=== PATIENT | female | born 1960 | race Caucasian/White ===

== ENCOUNTER 2017-12-07 10:25 | Day surgery (SDC) | payer MEDICARE, BC ==
[~2017-12-07] VITALS: Ht 172.7 cm; Wt 91.6 kg
[2017-12-07] VITALS (14 sets, daily range): BP systolic 97–130; BP diastolic 60–75
[2017-12-07] MEDS ORDERED: dextrose ORAL solution 15 GM/59 ML bottle PO PRN ×2 (10:45)
[2017-12-07] MEDS ORDERED: LORazepam 0.5 MG tablet PO PRN (10:45)
[2017-12-07] MEDS ORDERED: diphenhydrAMINE 25mg capsule PO PRN (10:45)
[2017-12-07] MEDS ORDERED: glucagon, human recombinant 1mg kit SUBCUT PRN (10:45)
[2017-12-07] MEDS ORDERED: insulin Lispro (HumaLOG) vial - multi-dose SQ SCH (10:45)
[2017-12-07] MEDS ORDERED: MESSAGE TO PHARMACY PO ONE (10:45)
[2017-12-07] MEDS ORDERED: normal saline 1000ml 1,000 ML IV SCH ×2 (10:45→13:30)
[2017-12-07] MEDS ORDERED: dextrose 50%-water 50ml dispensing syringe IV PRN ×2 (10:45)
[2017-12-07] MEDS ORDERED: nitroGLYCERIN 0.4mg SUBLingual tab SL PRN ×2 (10:45→13:30)
[2017-12-07] MEDS ORDERED: ASPI81TA52 PO (10:53)
[2017-12-07] MEDS ORDERED: GABA-534 PO (10:53)
[2017-12-07] MEDS ORDERED: AMIT-189 PO (10:53)
[2017-12-07] MEDS ORDERED: LEVO100T PO (10:53)
[2017-12-07] MEDS ORDERED: METF500T PO (10:53)
[2017-12-07] MEDS ORDERED: midazolam 2 mg/2 ml injection ONE ×2 (11:16→11:53)
[2017-12-07] MEDS ORDERED: fentaNYL/PF 50MCG/1 ML 2ML syringe ONE ×2 (11:16→12:00)
[2017-12-07] MEDS ORDERED: iohexol 350MG/ML 100ml bottle IV ONE (11:17)
[2017-12-07] MEDS ORDERED: iohexol 350 MG/ML 50ML vial IV ONE (11:17)
[2017-12-07] MEDS ORDERED: LIDOcaine 1% 30ml preserv. free vial ONE (11:18)
[2017-12-07] MEDS ORDERED: OXAZEpam 15mg capsule PO PRN (13:30)
[2017-12-07] MEDS ORDERED: acetaminophen 325mg tablet PO PRN (13:30)
[2017-12-07] MEDS ORDERED: proCHLORperazine 10 MG/2 ml inj IV PRN (13:30)
[2017-12-07] MEDS ORDERED: ondansetron/PF 4mg/2ml inj IV PRN (13:30)
[2017-12-07] MEDS ORDERED: HYDROcodone/acetaminophen 10/325mg tab PO PRN (13:30)
[2017-12-07] MEDS ORDERED: HYDROcodone/acetaminophen 5mg/325mg tablet PO PRN (13:30)
[2017-12-07] MEDS ORDERED: insulin glargine (Lantus) pen - multi-dose SQ SCH (21:00)
== END 2017-12-07 19:10 | disposition home or self-care (01) ==
LOC: SSTAY O 10:25
PROVIDERS: ATTEND Internal Medicine Cardiovascular Disease
DX: I25.10 Atherosclerotic heart disease of native coronary artery without angina pectoris (principal); I10 Essential (primary) hypertension; E78.5 Hyperlipidemia, unspecified; E11.9 Type 2 diabetes mellitus without complications; E03.9 Hypothyroidism, unspecified; E66.01 Morbid (severe) obesity due to excess calories; M16.0 Bilateral primary osteoarthritis of hip; M47.819 Spondylosis without myelopathy or radiculopathy, site unspecified; G89.4 Chronic pain syndrome; Z68.30 Body mass index [BMI] 30.0-30.9, adult; Z90.49 Acquired absence of other specified parts of digestive tract; Z90.710 Acquired absence of both cervix and uterus; Z79.82 Long term (current) use of aspirin; Z79.84 Long term (current) use of oral hypoglycemic drugs; Z79.891 Long term (current) use of opiate analgesic; Z98.890 Other specified postprocedural states; Z79.899 Other long term (current) drug therapy
CPT/HCPCS: 82948; 93458; 99152; 99153; A6257; A6449; C1760; C1769; J1644; J2250; J3010; J3490; J7030; Q0163; Q9967; A4620; J1815